=== PATIENT | male | born 1985 | race Caucasian/White ===

== ENCOUNTER → 2016-07-13 | Outpatient (CLI) | payer OTHER ==
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
== END | disposition home or self-care (01) ==
LOC: KCIC MRI 13:49
PROVIDERS: ATTEND Physical Medicine & Rehabilitation Pain Medicine
DX: S23.3XXA Sprain of ligaments of thoracic spine, initial encounter (principal)
CPT/HCPCS: 72146; 72148

== ENCOUNTER → 2016-08-29 | Outpatient (CLI) | payer OTHER ==
[~2016-08-29] MED LIST: CONTRAST GIVEN MC PRN; IOHEXOL 240 MG/ML 50ML VIAL. PO ONE; IOHEXOL 300 MG/ML 100ML VIAL. IV ONE; TIZA4CAP3 PO; TRAM50TA PO
--- NOTE | 2016-08-29 13:14 | KCIC ---
PROCEDURE CT abdomen pelvis with contrast. HISTORY Abdominal and pelvic pain on the left side for 1 week TECHNIQUE After administration of intravenous and oral contrast, CT imaging was performed of the abdomen and pelvis, multiplanar reconstruction images submitted. Exposure: One or more of the following individualized dose reduction techniques were utilized for this exam: 1. Automated exposure control. 2. Adjustment of the mA and/or kV according to patient size. 3. Use of iterative reconstruction technique. Contrast: 100 cc Omnipaque 300. COMPARISON None FINDINGS There is some beam attenuation by the soft tissues. There is no significant abnormality of the limited visualized lung bases. No focal abnormality is identified of the liver, spleen, pancreas. Spleen is enlarged on the order of 14.7 by 6.2 by 15 centimeters. Gallbladder is present without obvious intraluminal abnormality by CT. Both kidneys enhance, no hydronephrosis. There is no adrenal nodularity. Abdominal aortic caliber is within normal limits. Bowel is not significantly dilated. There is no free air or free fluid. Normal caliber appendix is visualized. No obvious bowel wall thickening is identified. There are some areas of relative increased density of the anterior abdominal subcutaneous fat bilaterally, no focal drainable fluid collection. There are inguinal lymph nodes bilaterally, largest on the left considered slightly prominent at 1.2 cm short axis dimension. There is inferior thoracic spondylosis. IMPRESSION 1. No significant acute abnormality is identified. There is some areas of relative increased density of the anterior abdominal subcutaneous fat bilaterally of uncertain significance and chronicity, could be due to nonspecific edema unless clinical suspicion for underlying soft tissue infection/cellulitis. 2. There are nonspecific inguinal lymph nodes, slightly prominent on the left. 3. There is nonspecific splenomegaly. Electronically signed by: Filippo An MD (Aug 29, 2016 13:13:38)
== END | disposition home or self-care (01) ==
LOC: KCIC CT 10:12
PROVIDERS: ATTEND Physical Medicine & Rehabilitation Pain Medicine
DX: R10.2 Pelvic and perineal pain (principal)
CPT/HCPCS: 74177; Q9966; Q9967